=== PATIENT | female | born 1970 | race Caucasian/White ===

== ENCOUNTER 2016-09-17 21:24 | Inpatient (IN) | payer OTHER ==
[~2016-09-17] VITALS: Ht 172.7 cm; Wt 130.0 kg
[2016-09-17] MEDS ORDERED: ONDANSETRON 2MG/ML, 2ML ONE (22:40)
[2016-09-17] MEDS ORDERED: MORPHINE SULFATE 4 MG/ML, 1ML ONE (22:40)
[2016-09-17] MEDS ORDERED: ONDANSETRON 2MG/ML, 2ML IVPush ONE (23:00)
[2016-09-17] MEDS ORDERED: morphine SULFATE 10 MG/ML, 1ML IVPush ONE (23:00)
[2016-09-17] MEDS ORDERED: PLEASE ENTER ALLERGIES MC SCH ×2 (23:00)
[2016-09-17 23:19] LABS: BLOOD UREA NITROGEN 14 mg/dL (7-18)
[2016-09-17] MEDS ORDERED: CHOL500014 PO (23:56)
[2016-09-17] MEDS ORDERED: OMEP20TA62 PO (23:56)
[2016-09-17] MEDS ORDERED: DIGESTZEN (23:56)
[2016-09-17] MEDS ORDERED: MORP15TA39 PO (23:56)
[2016-09-17] MEDS ORDERED: OXYC10TA6 PO (23:56)
[2016-09-17] MEDS ORDERED: CETI10CA PO (23:56)
[2016-09-17] MEDS ORDERED: DAPS100T PO (23:56)
[2016-09-17] MEDS ORDERED: TYLENOL PEG (23:56)
[2016-09-17] MEDS ORDERED: MYCO250C PO (23:56)
[2016-09-17] MEDS ORDERED: PHENERGAN PO (23:56)
[2016-09-17] MEDS ORDERED: DULO60CA7 PO (23:56)
[2016-09-17] MEDS ORDERED: TRAZ100T15 PO (23:56)
[2016-09-17] MEDS ORDERED: [UNRECOGNIZED DRUG - OTHER] (23:56)
[2016-09-17] MEDS ORDERED: LEVO15TA6 PO (23:56)
[2016-09-17] MEDS ORDERED: GABA-827 PO (23:56)
[2016-09-17] MEDS ORDERED: NAPR500T3 PO (23:56)
[2016-09-17] MEDS ORDERED: DIPH25CA61 PO (23:56)
[2016-09-17] MEDS ORDERED: MELA10TA10 PO (23:56)
[2016-09-17] MEDS ORDERED: PRED20TA PO (23:56)
[2016-09-17] MEDS ORDERED: MULT-205 PO (23:56)
[2016-09-18] MEDS ORDERED: ACETAMINOPHEN 325 MG TABLET PO PRN
[2016-09-18] MEDS ORDERED: BISACODYL 10 MG SUPP PR PRN
[2016-09-18] MEDS ORDERED: HYDROmorphone 1 MG/ML, 1ML ONE (00:15)
[2016-09-18] MEDS ORDERED: DIAZEPAM 5 MG/ML, 2ML ONE (00:15)
[2016-09-18] MEDS: DIAZEPAM 5 MG/ML, 2ML IVPush PRN ×2 (00:20→07:55)
[2016-09-18] MEDS: HYDROmorphone 2 MG/ML, 1ML IVPush PRN ×3 (00:20→08:55)
[2016-09-18 01:00] VITALS: BP 117/78
[2016-09-18] MEDS: SODIUM CHLORIDE 0.9% 1,000 ML IV SCH ×2 (01:35→12:15)
[2016-09-18 02:00] VITALS: BP 117/77
[2016-09-18 06:40] LABS: ASPARTATE AMINO TRANSFERASE 8 U/L (15-37); BLOOD UREA NITROGEN 13 mg/dL (7-18)
[2016-09-18 07:40] VITALS: BP 153/70
[2016-09-18] MEDS ORDERED: HYDROmorphone/PF 4 MG/ML, 1ML IVPush PRN (08:30)
[2016-09-18] MEDS ORDERED: FENTANYL PF 250 MCG/5ML ONE (13:12)
[2016-09-18] MEDS ORDERED: MIDAZOLAM 1 MG/ML, 2ML ONE (13:12)
[2016-09-18] MEDS ORDERED: SCOPOLAMINE PATCH, 1.5MG PATCH.TD72 TD ONE ×2 (13:27→13:30)
[2016-09-18] MEDS ORDERED: ONDANSETRON 2MG/ML, 2ML IVPush PRN ×2 (14:30)
[2016-09-18] MEDS ORDERED: FENTANYL PF 100 MCG/2ML IV PRN (14:30)
[2016-09-18] MEDS ORDERED: ALBUTEROL/IPRATROPIUM 2.5MG/0.5MG, 3 ML NPPB PRN (14:30)
[2016-09-18] MEDS ORDERED: PROMETHAZINE 25 MG/ML, 1ML IV PRN (14:30)
[2016-09-18] MEDS ORDERED: MEPERIDINE/PF 25MG/0.5ML IVPush PRN (14:30)
[2016-09-18] MEDS ORDERED: OXYcodone 5 MG/5 ML ORAL.SOL UDC PO PRN (14:30)
[2016-09-18 14:36] VITALS: BP 129/84
[2016-09-18] MEDS: hydrALAzine 20 MG/ML, 1ML IV PRN ×2 (14:52→15:12)
[2016-09-18] MEDS ORDERED: hydrALAzine 20 MG/ML, 1ML ONE (14:53)
[2016-09-18] MEDS ORDERED: HYDROmorphone 2 MG/ML, 1ML ONE (15:20)
[2016-09-18] MEDS: HYDROmorphone 1 MG/ML, 1ML IV PRN ×4 (15:21→16:00)
[2016-09-18] MEDS: LABETALOL 5MG/ML, 20ML IV PRN ×3 (15:40→15:55)
[2016-09-18] MEDS ORDERED: SUCCINYLCHOLINE 20 MG/ML, 10ML ONE (15:44)
[2016-09-18] MEDS ORDERED: PROPOFOL 10 MG/ML, 20ML ONE (15:44)
[2016-09-18] MEDS ORDERED: ROCURONIUM 10 MG/ML ONE (15:44)
[2016-09-18] MEDS ORDERED: DEXAMETHASONE 4 MG/ML, 1ML ONE (15:44)
[2016-09-18] MEDS ORDERED: ACETAMINOPHEN 325 MG TABLET ONE (16:21)
[2016-09-18] MEDS ORDERED: ACETAMINOPHEN 650 MG/20.3 ML UDC ONE (16:21)
[2016-09-18] MEDS ORDERED: OXYcodone 5 MG/5 ML ORAL.SOL UDC ONE (16:22)
[2016-09-18] MEDS ORDERED: ACETAMINOPHEN 650 MG/20.3 ML UDC PO PRN (16:30)
[2016-09-18] MEDS ORDERED: MELATONIN 3 MG TABLET PO PRN (17:30)
[2016-09-18] MEDS ORDERED: OMEPRAZOLE/SOD. BICARB. PACKET PO ONE (17:30)
[2016-09-18] MEDS ORDERED: ACETAMINOPHEN 650 MG/20.3 ML UDC PEG PRN (17:30)
[2016-09-18] MEDS ORDERED: HYDROcodone/APAP 7.5-325MG/15ML UDC PO PRN (17:30)
[2016-09-18] MEDS ORDERED: ONDANSETRON 2MG/ML, 2ML IV PRN (17:30)
[2016-09-18] MEDS ORDERED: TRAZODONE 100MG TABLET PO PRN (17:30)
[2016-09-18] MEDS ORDERED: HYDROmorphone 1 MG/ML, 1ML IV PRN (17:30)
[2016-09-18] MEDS ORDERED: OXYcodone/APAP 5/325MG TABLET PO PRN (17:30)
[2016-09-18] MEDS ORDERED: PROMETHAZINE 25MG TABLET PO PRN (17:30)
[2016-09-18] MEDS: KETOROLAC 30 MG/1 ML IV SCH (17:51)
[2016-09-18 20:47] VITALS: BP 110/73
[2016-09-18] MEDS: DOCUSATE 100 MG CAPSULE PO SCH (21:00)
[2016-09-18] MEDS ORDERED: DIPHENHYDRAMINE 25 MG CAPSULE PO SCH (21:00)
[2016-09-18] MEDS: GABAPENTIN 400 MG CAPSULE PO SCH (21:01)
[2016-09-18] MEDS: OXYcodone IR 5MG TABLET PO SCH (21:01)
[2016-09-18] MEDS: NAPROXEN 500 MG TABLET PO SCH (21:02)
[2016-09-18] MEDS: CEFAZOLIN PMX 2GM/100ML 100 ML IVPB SCH (22:58)
[2016-09-19] MEDS: KETOROLAC 30 MG/1 ML IV SCH ×2 (01:48→08:48)
[2016-09-19 02:00] VITALS: BP 133/82
[2016-09-19] MEDS: SODIUM CHLORIDE 0.9% 1,000 ML IV SCH (05:55)
[2016-09-19] MEDS: OXYcodone IR 5MG TABLET PO SCH ×2 (05:56→11:26)
[2016-09-19] MEDS: CEFAZOLIN PMX 2GM/100ML 100 ML IVPB SCH (05:56)
[2016-09-19] MEDS ORDERED: ENOXAPARIN 30 MG/0.3 ML SQ SCH (06:00)
[2016-09-19] MEDS ORDERED: PANTOPRAZOLE GRAN. PKT 40 MG PO SCH (07:30)
[2016-09-19 07:59] VITALS: BP 137/76
[2016-09-19] MEDS: DIAZEPAM 5 MG/ML, 2ML IVPush PRN ×2 (08:02→13:57)
[2016-09-19] MEDS: HYDROmorphone 2 MG/ML, 1ML IVPush PRN ×2 (08:03→13:49)
[2016-09-19] MEDS: DOCUSATE 100 MG CAPSULE PO SCH (08:50)
[2016-09-19] MEDS: GABAPENTIN 400 MG CAPSULE PO SCH (08:59)
[2016-09-19] MEDS ORDERED: CHOLECALCIFEROL 1,000 UNIT TABLET PO SCH (09:00)
[2016-09-19] MEDS ORDERED: DULOXETINE 30 MG CAPSULE.DR PO SCH (09:00)
[2016-09-19] MEDS ORDERED: CETIRIZINE 10 MG TABLET PO SCH (09:00)
[2016-09-19] MEDS: NAPROXEN 500 MG TABLET PO SCH (09:00)
[2016-09-19] MEDS ORDERED: MULTIVITAMINS/MINERALS TABLET PO SCH (09:00)
[2016-09-19] MEDS ORDERED: DAPSONE 100 MG TABLET PO SCH (09:00)
[2016-09-19] MEDS ORDERED: METHYLFOLATE 15 MG PO SCH (09:00)
[2016-09-19] MEDS ORDERED: DIAZ5TAB PO (12:34)
[2016-09-19] MEDS ORDERED: ENOX40SY4 SQ (12:34)
[2016-09-19 13:26] VITALS: BP 161/76
== END 2016-09-19 15:15 | disposition home or self-care (01) | DRG 481 ==
LOC: ED 23:30 → EDIP 23:40 → 4EST 09-18 01:14 → DCLOUNGE 09-19 14:53
PROVIDERS: ADMIT Internal Medicine; ATTEND Internal Medicine
PROC: 0QS636Z Reposition Right Upper Femur with Intramedullary Internal Fixation Device, Percutaneous Approach (ICD-10-PCS; principal; 2016-09-18 14:30)
DX: M80.051A Age-related osteoporosis with current pathological fracture, right femur, initial encounter for fracture (principal); E44.1 Mild protein-calorie malnutrition; Z68.41 Body mass index [BMI] 40.0-44.9, adult; F11.20 Opioid dependence, uncomplicated; S72.041A Displaced fracture of base of neck of right femur, initial encounter for closed fracture; B95.61 Methicillin susceptible Staphylococcus aureus infection as the cause of diseases classified elsewhere; E66.01 Morbid (severe) obesity due to excess calories; G89.29 Other chronic pain; M35.00 Sjogren syndrome, unspecified; I10 Essential (primary) hypertension; F32.9 Major depressive disorder, single episode, unspecified; M32.9 Systemic lupus erythematosus, unspecified; D64.9 Anemia, unspecified; Z66 Do not resuscitate; R26.2 Difficulty in walking, not elsewhere classified; R00.0 Tachycardia, unspecified; D72.829 Elevated white blood cell count, unspecified; M51.37 Other intervertebral disc degeneration, lumbosacral region; W19.XXXA Unspecified fall, initial encounter; Z96.653 Presence of artificial knee joint, bilateral; Y93.89 Activity, other specified; Y92.89 Other specified places as the place of occurrence of the external cause; Y99.8 Other external cause status; Z98.84 Bariatric surgery status; Z79.899 Other long term (current) drug therapy; Z90.89 Acquired absence of other organs; Z90.49 Acquired absence of other specified parts of digestive tract; Z88.2 Allergy status to sulfonamides; Z88.8 Allergy status to other drugs, medicaments and biological substances; Z91.048 Other nonmedicinal substance allergy status
CPT/HCPCS: 36415; 72131; 72192; 76000; 80048; 80053; 81003; 82040; 82306; 85025; 85651; 96374; 96375; C1713; J1100; J1170; J1650; J1885; J2250; J2405; J2704; J3010; J3360; J0330; J0360; J0690; J2270; J7030; J7512; Q0163

== ENCOUNTER 2018-06-15 07:05 | Day surgery (SDC) | payer MEDICARE, OTHER ==
[~2018-06-15] VITALS: Ht 160 cm; Wt 103.2 kg
[~2018-06-15 07:05] MED LIST: ALBU90AE INH; ALEN70TA6 PO; APIX5TAB PO; CARV6.2512 PO; CETI10CA PO; CEVI30CA PO; CHOL500045 PO; CORT80VI2 IM; CYAN1TAB29 PO; DAPS100T PO; DIAZ5TAB PO; DIGESTZEN; DIPH25CA61 PO; DULO60CA7 PO; ENOX40SY4 SQ; FLUT12HF3 IH; FURO40TA6 PO; GABA-827 PO; IBUP200T49 PO; LEVO15TA6 PO; MELA10TA10 PO; MORP-52 PO; MULT-205 PO; MYCO250C PO; NAPR-685 PO; NYST1000 PO; OMEP20TA62 PO; OXYC-307 PO; OXYC10TA6 PO; PHENERGAN PO; POTA20PA25 PO; POTA90TA2 PO; PRED20TA PO; RIVA15TA PO; TIZA2CAP2 PO; TOPI200T6 PO; TRAZ-137 PO; TRIA1TAB3 PO; TYLENOL PEG; [UNRECOGNIZED DRUG - OTHER]
[2018-06-15] MEDS ORDERED: SODIUM CHLORIDE 0.9% 1,000 ML IV SCH (07:28)
[2018-06-15] MEDS ORDERED: CEFAZOLIN PMX 1GM/50ML 50 ML IV ONE (07:30)
[2018-06-15 07:58] VITALS: BP 122/90
[2018-06-15] MEDS ORDERED: LIDOCAINE 1%, 20ML ONE (08:20)
[2018-06-15] MEDS ORDERED: MIDAZOLAM 1 MG/ML, 5ML ONE (09:17)
[2018-06-15] MEDS ORDERED: FLUMAZENIL 0.1 MG/1 ML, 5ML ONE (09:17)
[2018-06-15] MEDS ORDERED: FENTANYL PF 100 MCG/2ML ONE ×2 (09:17)
[2018-06-15] MEDS ORDERED: NALOXONE 1 MG/ML, 2ML ONE (09:18)
[2018-06-15] MEDS ORDERED: DIPHENHYDRAMINE 50 MG/ML, 1ML ONE (10:25)
== END 2018-06-15 11:35 | disposition home or self-care (01) ==
LOC: OUT 07:05 → EDSTATUS 09:00 → OUT 11:35
PROVIDERS: ATTEND Surgery
DX: Z45.2 Encounter for adjustment and management of vascular access device (principal); R09.89 Other specified symptoms and signs involving the circulatory and respiratory systems; Z88.1 Allergy status to other antibiotic agents; Z88.8 Allergy status to other drugs, medicaments and biological substances
CPT/HCPCS: 36561; 76937; 77001; 99156; 99157; C1788; J0690; J1200; J1642; J2250; J3010; J3490; J7030; J2310